=== PATIENT | male | born 1990 | race Two or more races ===

== ENCOUNTER 2018-02-20 22:21 | Emergency (ER) | payer MEDICAID, OTHER ==
[~2018-02-20] VITALS: Ht 175.3 cm; Wt 95.3 kg
[2018-02-20] MEDS ORDERED: ALBUTEROL SULF 2.5 MG/0.5ML(0.5%) NEB SOLN NEB ONE (22:45)
[2018-02-20] MEDS ORDERED: IPRATROPIUM BROM 0.5 MG/2.5ML INH SOL NEB ONE (22:45)
[2018-02-20 22:46] VITALS: BP 131/77
== END 2018-02-21 02:13 | disposition home or self-care (01) ==
LOC: ER 22:21
DX: L30.1 Dyshidrosis [pompholyx] (principal); J45.909 Unspecified asthma, uncomplicated; Z77.098 Contact with and (suspected) exposure to other hazardous, chiefly nonmedicinal, chemicals
CPT/HCPCS: 94640

== ENCOUNTER 2022-08-28 18:25 | Emergency (ER) | payer MEDICAID ==
[~2022-08-28] VITALS: Ht 175.3 cm; Wt 73.0 kg
[2022-08-28 18:38] VITALS: BP 151/89
== END 2022-08-28 20:11 | disposition left against medical advice (07) ==
LOC: ER 18:25
DX: F41.0 Panic disorder [episodic paroxysmal anxiety] (principal); Z53.21 Procedure and treatment not carried out due to patient leaving prior to being seen by health care provider